=== PATIENT | female | born 1985 | race Caucasian/White ===

== ENCOUNTER → 2016-11-22 | Outpatient (CLI) | payer OTHER ==
[~2016-11-22] MED LIST: OMEP20TA39 PO; ZOFR4TAB3 SL
== END ==
LOC: HPND 10:09
DX: O28.0 Abnormal hematological finding on antenatal screening of mother (principal); O99.320 Drug use complicating pregnancy, unspecified trimester; O99.330 Smoking (tobacco) complicating pregnancy, unspecified trimester
CPT/HCPCS: 76811; 76825; 76827; 93325

== ENCOUNTER → 2017-01-20 | Outpatient (CLI) | payer MEDICAID | LOC: HPND 09:52 | DX: O99.332 Smoking (tobacco) complicating pregnancy, second trimester (principal); O28.0 Abnormal hematological finding on antenatal screening of mother | CPT/HCPCS: 76816 ==